=== PATIENT | male | born 1955 | race Caucasian/White ===

== ENCOUNTER 2018-04-26 22:38 | Emergency (ER) | payer MEDICARE, MEDICAID ==
[2018-04-26 22:58] LABS: #Basophils 0.1 thou/uL (0.0-0.2); #Eosinphils 0.1 thou/uL (0.0-0.7); #Lymphocytes 1.8 thou/uL (1.20-3.40); #Monocytes 0.8 thou/uL (0.11-0.59); #Neutrophils 4.4 thou/uL (1.40-6.50); %Basophils 1.2 % (0.0-1.0); %Monocytes 11.3 % (0.0-10.0); %Neutrophils 61.5 % (42.0-75.0); Hemoglobin 14.4 g/dL (14.0-18.0); Mean Corpuscular HGB CONC 33.6 g/dL (32.0-36.0); Mean Corpuscular Hemoglobin 31.6 pg (27.0-31.0); Mean Platelet Volume 7.9 fL (7.4-10.4); Platelet Count 199 thou/uL (130-400); RBC Distribution Width 12.6 % (11.5-14.5); Red Blood Cell (RBC) Count 4.55 mill/uL (4.70-6.10); White Blood Cell (WBC) Count 7.1 thou/uL (4.8-10.8)
[2018-04-26 23:25] LABS: ALT (SGPT) 12 U/L (8-55); AST (SGOT) 15 U/L (5-34); Alkaline Phosphatase 63 U/L (40-150); Anion Gap 14 mmol/L (10-20); BUN (Urea Nitrogen) 21 mg/dL (8.4-25.7); Bilirubin, Total 0.7 mg/dL (0.2-1.2); Calc. Creatinine Clearance 0 mL/min (70-130); Calcium 9.4 mg/dL (7.8-10.44); Carbon Dioxide 26 mmol/L (23-31); Chloride 103 mmol/L (98-107); Estimated GFR-MDRD Greater than 90; Globulin 3.2 g/dL (2.4-3.5); Glucose 87 mg/dL (80-115); Protein, Total 7.2 g/dL (5.8-8.1); Sodium 139 mmol/L (136-145)
--- NOTE | 2018-04-26 23:46 | RAD ---
UPRIGHT PORTABLE CHEST ONE VIEW: 04/26/18 HISTORY: 62-year-old male with history of fever. COMPARISON: 04/09/15. FINDINGS: Monitor leads overlie the chest. No confluent pneumonia, overt edema, or pleural effusion. Evidence f or hiatal hernia. IMPRESSION: Evidence for hiatal hernia. No acute intrathoracic disease. Stable from prior study. POS: [facility]
[2018-04-27 00:01] LABS: Bilirubin Negative (Negative); Blood, Urine Negative (Negative); Clarity CLOUDY (Clear); Glucose, Urine (Dipstick) Negative (Negative); Leukocyte Negative (Negative); Nitrite Negative (Negative); Protein, Urine (Dipstick) 30 mg/dL (Neg-Trace); Specific Gravity, Urine 1.021 (1.002-1.036); pH, Urine 7.5 (5.0-9.0)
[2018-04-27 00:04] LABS: Bacteria/HPF None Seen HPF (None Seen); Hyaline Casts/LPF 7-10 HYALINE CAST LPF (0-3 Hyaline); Pathc Cast-AUWi Flag 1.45 (0-2.49); Squamous Epithelial 0-3 HPF (0-3); WBC/HPF 0-3 HPF (0-3)
--- NOTE | 2018-04-28 13:41 | EKG ---
Test Reason : ER INDICATION Blood Pressure : / mmHG Vent. Rate : 086 BPM Atrial Rate : 087 BPM P-R Int : 000 ms QRS Dur : 090 ms QT Int : 336 ms P-R-T Axes : 000 062 046 degrees QTc Int : 402 ms Normal sinus rhythm Normal ECG Confirmed by CASSIE CARDONA DO ([id number]), purchase request editor ALTA BARROS ([id number]) on 04/28/2018 1:41:44 PM Referred By: MARY Confirmed By:CASSIE CARDONA DO
== END 2018-04-27 01:44 ==
LOC: ERS 22:38
DX: R25.1 Tremor, unspecified (principal); R50.9 Fever, unspecified; K59.00 Constipation, unspecified; G47.00 Insomnia, unspecified; N40.0 Benign prostatic hyperplasia without lower urinary tract symptoms; K21.9 Gastro-esophageal reflux disease without esophagitis; D64.9 Anemia, unspecified; F41.9 Anxiety disorder, unspecified; Z79.899 Other long term (current) drug therapy
CPT/HCPCS: 51701; 71045; 80053; 81003; 81015; 84484; 85025; 93005

== ENCOUNTER 2018-07-16 14:55 | Outpatient (CLI) | payer MEDICARE, MEDICAID ==
--- NOTE | 2018-07-16 15:51 | CT ---
CT BRAIN: DATE: 07/16/2018. PROVIDED CLINICAL HISTORY: Seizure. FINDINGS: Comparison is made with the study dated 05/30/2008. The ventricular system is unchanged in size and m orphology. There is no evidence for intracranial hemorrhage. There is poor visualization of the cer ebral sulci near the vertex, which could be artifactual in nature. The extracranial soft tissues and osseous structures demonstrate an unremarkable CT appearance. IMPRESSION: Poor definition to the cerebral sulci near the vertex, the etiology and significance of which are unc ertain. Given the provided clinical history, further evaluation with MRI brain is recommended. POS: [facility]
== END 2018-07-16 14:56 | disposition home or self-care (01) ==
LOC: CT 14:55
PROVIDERS: ATTEND Psychiatry & Neurology Neurology
DX: G40.209 Localization-related (focal) (partial) symptomatic epilepsy and epileptic syndromes with complex partial seizures, not intractable, without status epilepticus (principal)
CPT/HCPCS: 70450

== ENCOUNTER 2020-01-15 21:52 | Emergency (ER) | payer MEDICARE, MEDICAID ==
[2020-01-15] MEDS ORDERED: Ondansetron PF 4 MG/2 ML Vial ONE (23:15)
[2020-01-15] MEDS ORDERED: Morphine 4 MG/ML VIAL ONE (23:15)
[2020-01-15 23:35] LABS: #Basophils 0.1 thou/uL (0.0-0.2); #Eosinphils 0.1 thou/uL (0.0-0.7); #Lymphocytes 1.3 thou/uL (1.20-3.40); #Monocytes 0.7 thou/uL (0.11-0.59); #Neutrophils 3.7 thou/uL (1.40-6.50); %Basophils 0.9 % (0.0-1.0); %Eosinophils 1.8 % (0.0-10.0); %Lymphocytes 22.5 % (21.0-51.0); %Monocytes 11.5 % (0.0-10.0); %Neutrophils 63.3 % (42.0-75.0); Hemoglobin 11.7 g/dL (14.0-18.0); Mean Corpuscular Hemoglobin 31.4 pg (27.0-31.0); Mean Corpuscular Volume 98.1 fL (78.0-98.0); Mean Platelet Volume 6.9 fL (7.4-10.4); Platelet Count 254 thou/uL (130-400); RBC Distribution Width 12.7 % (11.5-14.5); Red Blood Cell (RBC) Count 3.71 mill/uL (4.70-6.10); White Blood Cell (WBC) Count 5.9 thou/uL (4.8-10.8)
[2020-01-16 00:03] LABS: ALT (SGPT) 10 U/L (8-55); AST (SGOT) 11 U/L (5-34); Albumin 3.4 g/dL (3.4-4.8); Alkaline Phosphatase 71 U/L (40-110); Anion Gap 12 mmol/L (10-20); BUN (Urea Nitrogen) 21 mg/dL (8.4-25.7); Bilirubin, Total 0.3 mg/dL (0.2-1.2); CK (CPK) 70 U/L (30-200); Calc. Creatinine Clearance 0 mL/min (70-130); Calcium 8.6 mg/dL (7.8-10.44); Carbon Dioxide 25 mmol/L (23-31); Chloride 109 mmol/L (98-107); Estimated GFR-MDRD Greater than 90; Globulin 2.5 g/dL (2.4-3.5); Glucose 100 mg/dL (80-115); Potassium 3.9 mmol/L (3.5-5.1); Protein, Total 5.9 g/dL (5.8-8.1); Sodium 142 mmol/L (136-145)
[2020-01-16 00:08] LABS: Bacteria/HPF 4+ HPF (None Seen); Bilirubin Negative (Negative); Blood, Urine 2+ (Negative); Clarity Turbid (Clear); Glucose, Urine (Dipstick) Normal (Negative); Ketone, Urine Trace mg/dL (Negative); Leukocyte 250 Leu/uL (Negative); Nitrite Negative (Negative); Protein, Urine (Dipstick) 10 mg/dL (Neg-Trace); Specific Gravity, Urine 1.023 (1.002-1.036); Squamous Epithelial 0-3 HPF (0-3); Urobilinogen Normal mg/dL (Less than 2); WBC/HPF 21-50 HPF (0-3); pH, Urine 5.5 (5.0-9.0)
[2020-01-16] MEDS ORDERED: cefTRIAXone\\ROCEPHIN 1 GM VIAL ONE (00:44)
[2020-01-16] MEDS ORDERED: Morphine 2 MG/ML SYRINGE ONE (00:46)
== END 2020-01-16 01:36 ==
LOC: ERS 21:52
DX: N39.0 Urinary tract infection, site not specified (principal); L89.323 Pressure ulcer of left buttock, stage 3; F41.9 Anxiety disorder, unspecified; F32.9 Major depressive disorder, single episode, unspecified; K21.9 Gastro-esophageal reflux disease without esophagitis; D64.9 Anemia, unspecified
CPT/HCPCS: 36415; 51701; 80053; 81003; 81015; 82550; 83605; 85025; 87077; 87086; 87186; 96365; 96375; 96376; J0696; J2270; J2405